=== PATIENT | female | born 1970 | race Caucasian/White ===

== ENCOUNTER 2017-06-19 17:40 | Emergency (ER) | payer SELFPAY ==
[~2017-06-19] VITALS: Ht 167.6 cm; Wt 79.9 kg
[2017-06-19 17:51] VITALS: BP 107/71
[2017-06-19] MEDS ORDERED: METHOCARBAMOL 750 MG TABLET PO ONE (19:00)
[2017-06-19] MEDS ORDERED: KETOROLAC 30 MG/1 ML IM ONE (19:00)
[2017-06-19] MEDS ORDERED: METHOCARBAMOL 750 MG TABLET ONE (19:01)
[2017-06-19] MEDS ORDERED: KETOROLAC 30 MG/1 ML ONE (19:01)
== END 2017-06-19 19:41 ==
LOC: ED 19:35
DX: S52.125A Nondisplaced fracture of head of left radius, initial encounter for closed fracture (principal); G89.11 Acute pain due to trauma; J45.909 Unspecified asthma, uncomplicated; F43.10 Post-traumatic stress disorder, unspecified; W01.0XXA Fall on same level from slipping, tripping and stumbling without subsequent striking against object, initial encounter; Y93.89 Activity, other specified; Y92.89 Other specified places as the place of occurrence of the external cause; Y99.8 Other external cause status
CPT/HCPCS: 29105; 72110

== ENCOUNTER 2017-09-07 23:25 | Emergency (ER) | payer MEDICAID, OTHER ==
[~2017-09-07] VITALS: Ht 167.6 cm; Wt 76.3 kg
[2017-09-07 23:26] VITALS: BP 122/85
[2017-09-08 01:41] LABS: CULTURE INDICATED? YES; MICROSCOPIC INDICATED
[2017-09-08 01:47] LABS: BASOPHILS # (AUTO) 0.01 x10^3/uL (0-0.1); BASOPHILS % (AUTO) 0 % (0-1); EOSINOPHILS # (AUTO) 0.32 x10^3/uL (0-0.4); EOSINOPHILS % (AUTO) 4 % (1-7); LYMPHOCYTES # (AUTO) 1.56 x10^3/uL (1-3.4); LYMPHOCYTES % (AUTO) 18 % (22-44); MD NO; MEAN CORPUSCULAR HEMOGLOBIN 31.1 pg (27.0-34.8); MEAN CORPUSCULAR HGB CONC 33.9 g/dL (32.4-35.8); MEAN CORPUSCULAR VOLUME 91.5 fL (80-100); MEAN PLATELET VOLUME 7.8 fL (7.4-10.4); MONOCYTES # (AUTO) 1.19 x10^3/uL (0.2-0.8); MONOCYTES % (AUTO) 14 % (2-9); NEUTROPHILS # (AUTO) 5.53 x10^3/uL (1.8-6.8); NEUTROPHILS % (AUTO) 64 % (42-75); PLATELET COUNT 186 x10^3/uL (130-400); RED BLOOD COUNT 4.23 x10^6/uL (3.82-5.3); RED CELL DISTRIBUTION WIDTH 14.2 % (9.6-15.2)
[2017-09-08 02:00] LABS: ALBUMIN 2.1 g/dL (3.4-5.0); ANION GAP 8 mmol/L (5-15); CALCIUM 8.6 mg/dL (8.5-10.1); CHLORIDE 110 mmol/L (98-107)
[2017-09-08 02:06] LABS: ALANINE AMINOTRANSFERASE 59 U/L (12-78); ALKALINE PHOSPHATASE 286 U/L (45-117); BILIRUBIN,TOTAL 1.4 mg/dL (0.2-1.0); CREATININE 1.12 mg/dL (0.55-1.02); TOTAL PROTEIN 7.1 g/dL (6.4-8.2); TROPONIN I < 0.015 ng/mL (0.000-0.045)
== END 2017-09-08 03:32 | disposition home or self-care (01) ==
LOC: ED 09-08 00:56
DX: R10.84 Generalized abdominal pain (principal); F43.10 Post-traumatic stress disorder, unspecified
CPT/HCPCS: 36415; 71045; 74176; 80053; 81001; 81025; 83690; 84484; 85025; 87086; 99285

== ENCOUNTER 2017-09-21 18:10 | Emergency (ER) | payer MEDICAID ==
[~2017-09-21] VITALS: Ht 167.6 cm; Wt 74.5 kg
[2017-09-21] MEDS ORDERED: ONDANSETRON 2MG/ML, 2ML IVPush ONE (18:30)
[2017-09-21] MEDS ORDERED: SODIUM CHLORIDE FLUSH 10ML SYR IVF ONE (18:30)
[2017-09-21] MEDS ORDERED: ONDANSETRON ODT 4 MG ONE (18:30)
[2017-09-21] MEDS ORDERED: ONDANSETRON 2MG/ML, 2ML ONE (18:30)
[2017-09-21] MEDS ORDERED: SODIUM CHLORIDE 0.9% 1,000ML IVBOLUS ONE (18:30)
[2017-09-21 18:49] VITALS: BP 133/91
[2017-09-21 18:56] LABS: BASOPHILS # (AUTO) 0.01 x10^3/uL (0-0.1); BASOPHILS % (AUTO) 0 % (0-1); EOSINOPHILS # (AUTO) 0.16 x10^3/uL (0-0.4); EOSINOPHILS % (AUTO) 2 % (1-7); LYMPHOCYTES # (AUTO) 1.42 x10^3/uL (1-3.4); LYMPHOCYTES % (AUTO) 14 % (22-44); MD NO; MEAN CORPUSCULAR HEMOGLOBIN 31.3 pg (27.0-34.8); MEAN CORPUSCULAR HGB CONC 33.3 g/dL (32.4-35.8); MEAN CORPUSCULAR VOLUME 93.9 fL (80-100); MEAN PLATELET VOLUME 8.4 fL (7.4-10.4); MONOCYTES # (AUTO) 0.81 x10^3/uL (0.2-0.8); MONOCYTES % (AUTO) 8 % (2-9); NEUTROPHILS # (AUTO) 7.73 x10^3/uL (1.8-6.8); NEUTROPHILS % (AUTO) 76 % (42-75); PLATELET COUNT 168 x10^3/uL (130-400); RED BLOOD COUNT 4.46 x10^6/uL (3.82-5.3); RED CELL DISTRIBUTION WIDTH 13.9 % (9.6-15.2)
[2017-09-21 19:07] LABS: ALANINE AMINOTRANSFERASE 83 U/L (12-78); ALBUMIN 2.8 g/dL (3.4-5.0); ANION GAP 7 mmol/L (5-15); CALCIUM 8.1 mg/dL (8.5-10.1); CHLORIDE 109 mmol/L (98-107); CREATININE 0.95 mg/dL (0.55-1.02)
[2017-09-21 19:12] LABS: ALKALINE PHOSPHATASE 162 U/L (45-117); BILIRUBIN,TOTAL 1.2 mg/dL (0.2-1.0); TOTAL PROTEIN 7.6 g/dL (6.4-8.2)
[2017-09-21 19:25] LABS: MICROSCOPIC AUTO
[2017-09-21 19:28] LABS: CULTURE INDICATED? YES
== END 2017-09-21 20:15 | disposition home or self-care (01) ==
LOC: ED 18:51
DX: R10.84 Generalized abdominal pain (principal); N30.00 Acute cystitis without hematuria; R94.5 Abnormal results of liver function studies
CPT/HCPCS: 36415; 80053; 81001; 84703; 85025; 87077; 87086; 87186; 99284

== ENCOUNTER 2019-03-13 18:43 | Inpatient (IN) | payer MEDICAID ==
[~2019-03-13] VITALS: Ht 165.1 cm; Wt 66.7 kg
--- NOTE | 2019-03-13 18:45 | NUR ---
PT IN BATHROOM
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
--- NOTE | 2019-03-13 20:13 | NUR ---
PT TO XRAY NOW.
[2019-03-13] MEDS ORDERED: ACETAMINOPHEN 325 MG TABLET ONE (20:14)
[2019-03-13] MEDS ORDERED: ALBUTEROL/IPRATROPIUM 2.5MG/0.5MG, 3 ML ONE (20:17)
--- NOTE | 2019-03-13 20:17 | NUR ---
PT BACK TO ROOM FROM XRAY NOW.
--- NOTE | 2019-03-13 20:23 | NUR ---
PT AMB TO BR AND BACK TO ROOM WITH STEADY GAIT. UA SENT.
--- NOTE | 2019-03-13 20:24 | NUR ---
PT MEDICATED PER EMAR. PT TOLERATED WELL. RT AT BEDSIDE NOW.
[2019-03-13] MEDS ORDERED: ALBUTEROL/IPRATROPIUM 2.5MG/0.5MG, 3 ML NPPB ONE (20:30)
[2019-03-13] MEDS ORDERED: ACETAMINOPHEN 325 MG TABLET PO ONE (20:30)
[2019-03-13] MEDS ORDERED: SODIUM CHLORIDE 0.9% 1,000ML IVBOLUS ONE ×2 (20:30→21:30)
[2019-03-13] MEDS ORDERED: SODIUM CHLORIDE FLUSH 10ML SYR IVF ONE (20:30)
--- NOTE | 2019-03-13 20:39 | NUR ---
NS INFUSING AT THIS TIME.
[2019-03-13 20:57] LABS: CULTURE INDICATED? YES; MICROSCOPIC INDICATED
[2019-03-13 21:05] LABS: BASOPHILS % (AUTO) 0 % (0-1); EOSINOPHILS # (AUTO) 0.01 x10^3/uL (0-0.4); EOSINOPHILS % (AUTO) 0 % (1-7); LYMPHOCYTES % (AUTO) 10 % (22-44); MD NO; MEAN CORPUSCULAR HEMOGLOBIN 32.1 pg (27.0-34.8); MEAN CORPUSCULAR HGB CONC 33.5 g/dL (32.4-35.8); MEAN CORPUSCULAR VOLUME 95.8 fL (80-100); MEAN PLATELET VOLUME 8.4 fL (7.4-10.4); MONOCYTES # (AUTO) 1.41 x10^3/uL (0.2-0.8); MONOCYTES % (AUTO) 10 % (2-9); NEUTROPHILS # (AUTO) 11.95 x10^3/uL (1.8-6.8); NEUTROPHILS % (AUTO) 80 % (42-75); PLATELET COUNT 130 x10^3/uL (130-400); RED BLOOD COUNT 4.75 x10^6/uL (3.82-5.3); RED CELL DISTRIBUTION WIDTH 13.2 % (9.6-15.2)
[2019-03-13 21:14] LABS: ALANINE AMINOTRANSFERASE 145 U/L (12-78); ALBUMIN 3.2 g/dL (3.4-5.0); ANION GAP 8 mmol/L (5-15); CALCIUM 8.8 mg/dL (8.5-10.1); CHLORIDE 106 mmol/L (98-107); CREATININE 0.84 mg/dL (0.55-1.02)
[2019-03-13 21:16] LABS: ALKALINE PHOSPHATASE 102 U/L (45-117); BILIRUBIN,TOTAL 1.5 mg/dL (0.2-1.0); TOTAL PROTEIN 7.4 g/dL (6.4-8.2)
[2019-03-13] MEDS ORDERED: CEFTRIAXONE PMX 1GM/50ML 50 ML ONE (21:16)
--- NOTE | 2019-03-13 21:21 | NUR ---
ABX INFUSING AT THIS TIME. PT TOLERATED WELL.
[2019-03-13] MEDS ORDERED: CEFTRIAXONE PMX 1GM/50ML 50 ML IV ONE (21:30)
[2019-03-13] MEDS ORDERED: SODIUM CHLORIDE 0.9% 1,000 ML IV SCH (21:43)
--- NOTE | 2019-03-13 21:48 | NUR ---
REPORT GIVEN TO JATIN OZUNA. ALL QUESTIONS ANSWERED.
[2019-03-13] MEDS ORDERED: hydrALAzine 20 MG/ML, 1ML IVPush PRN (22:00)
[2019-03-13] MEDS: ENOXAPARIN 40 MG/0.4 ML SQ SCH (22:00)
[2019-03-13 23:03] VITALS: BP 100/65
[2019-03-14 02:00] VITALS: BP 114/77
[2019-03-14 06:59] VITALS: BP 111/73
[2019-03-14] MEDS: ACETAMINOPHEN 325 MG TABLET PO PRN ×3 (08:10→18:27)
[2019-03-14 08:56] LABS: MEAN CORPUSCULAR HEMOGLOBIN 31.5 pg (27.0-34.8); MEAN CORPUSCULAR HGB CONC 33.4 g/dL (32.4-35.8); MEAN CORPUSCULAR VOLUME 94.2 fL (80-100); MEAN PLATELET VOLUME 8.1 fL (7.4-10.4); PLATELET COUNT 116 x10^3/uL (130-400); RED BLOOD COUNT 4.62 x10^6/uL (3.82-5.3); RED CELL DISTRIBUTION WIDTH 13.4 % (9.6-15.2)
[2019-03-14 08:59] LABS: ALANINE AMINOTRANSFERASE 121 U/L (12-78); ALBUMIN 2.9 g/dL (3.4-5.0); ANION GAP 8 mmol/L (5-15); CALCIUM 8.3 mg/dL (8.5-10.1); CHLORIDE 108 mmol/L (98-107); CREATININE 0.77 mg/dL (0.55-1.02)
[2019-03-14 09:01] LABS: ALKALINE PHOSPHATASE 100 U/L (45-117); BILIRUBIN,TOTAL 1.2 mg/dL (0.2-1.0)
[2019-03-14 09:19] LABS: BASOPHILS # (AUTO) 0.01 x10^3/uL (0-0.1); BASOPHILS % (AUTO) 0 % (0-1); EOSINOPHILS # (AUTO) 0.01 x10^3/uL (0-0.4); EOSINOPHILS % (AUTO) 0 % (1-7); LYMPHOCYTES % (AUTO) 8 % (22-44); MD SCAN; MONOCYTES % (AUTO) 12 % (2-9); NEUTROPHILS % (AUTO) 80 % (42-75)
[2019-03-14] MEDS: CEFTRIAXONE PMX 2GM/50ML 50 ML IV SCH (09:50)
[2019-03-14 12:27] VITALS: BP 95/61
[2019-03-14] MEDS: NICOTINE 21 MG/24 HR PATCH.TD24 TD SCH (16:06)
[2019-03-14 19:08] VITALS: BP 109/60
[2019-03-14] MEDS ORDERED: IBUPROFEN 200 MG TABLET PO ONE (19:30)
[2019-03-14] MEDS ORDERED: SODIUM CHLORIDE 0.9% 1,000 ML IV SCH ×2 (21:43)
[2019-03-14] MEDS: ENOXAPARIN 40 MG/0.4 ML SQ SCH (22:00)
[2019-03-15 00:45] VITALS: BP 114/75
[2019-03-15 05:27] LABS: ALBUMIN 2.6 g/dL (3.4-5.0); CALCIUM 8.5 mg/dL (8.5-10.1); CHLORIDE 113 mmol/L (98-107)
[2019-03-15 05:32] LABS: ALANINE AMINOTRANSFERASE 92 U/L (12-78); ALKALINE PHOSPHATASE 102 U/L (45-117); ANION GAP 5 mmol/L (5-15); BILIRUBIN,TOTAL 0.8 mg/dL (0.2-1.0); CREATININE 0.84 mg/dL (0.55-1.02); TOTAL PROTEIN 6.6 g/dL (6.4-8.2)
[2019-03-15 05:37] LABS: BASOPHILS # (AUTO) 0.02 x10^3/uL (0-0.1); BASOPHILS % (AUTO) 0 % (0-1); EOSINOPHILS % (AUTO) 1 % (1-7); LYMPHOCYTES # (AUTO) 0.89 x10^3/uL (1-3.4); LYMPHOCYTES % (AUTO) 9 % (22-44); MD NO; MEAN CORPUSCULAR HEMOGLOBIN 32.5 pg (27.0-34.8); MEAN CORPUSCULAR HGB CONC 33.5 g/dL (32.4-35.8); MEAN PLATELET VOLUME 8.3 fL (7.4-10.4); MONOCYTES # (AUTO) 1.42 x10^3/uL (0.2-0.8); MONOCYTES % (AUTO) 13 % (2-9); NEUTROPHILS # (AUTO) 8.13 x10^3/uL (1.8-6.8); NEUTROPHILS % (AUTO) 77 % (42-75); PLATELET COUNT 107 x10^3/uL (130-400)
[2019-03-15] MEDS: ACETAMINOPHEN 325 MG TABLET PO PRN (06:37)
[2019-03-15 07:14] VITALS: BP 108/76
[2019-03-15] MEDS: IBUPROFEN 200 MG TABLET PO PRN ×2 (07:30→20:24)
[2019-03-15] MEDS: NICOTINE 21 MG/24 HR PATCH.TD24 TD SCH ×2 (07:30→15:31)
[2019-03-15 08:22] LABS: HEMOGLOBIN A1C 5.4 % (4.2-6.3)
[2019-03-15] MEDS: CEFTRIAXONE PMX 2GM/50ML 50 ML IV SCH (10:51)
[2019-03-15 13:37] VITALS: BP 121/85
[2019-03-15 19:20] VITALS: BP 120/82
[2019-03-15] MEDS: ENOXAPARIN 40 MG/0.4 ML SQ SCH (20:25)
[2019-03-15] MEDS ORDERED: ONDANSETRON 2MG/ML, 2ML IVPush PRN (21:00)
[2019-03-16 01:00] VITALS: BP 114/78
[2019-03-16] MEDS: ACETAMINOPHEN 325 MG TABLET PO PRN (03:53)
[2019-03-16 05:35] LABS: ALBUMIN 2.4 g/dL (3.4-5.0); ANION GAP 7 mmol/L (5-15); CALCIUM 8.4 mg/dL (8.5-10.1); CHLORIDE 111 mmol/L (98-107)
[2019-03-16 05:37] LABS: BASOPHILS # (AUTO) 0.02 x10^3/uL (0-0.1); BASOPHILS % (AUTO) 0 % (0-1); EOSINOPHILS # (AUTO) 0.16 x10^3/uL (0-0.4); EOSINOPHILS % (AUTO) 3 % (1-7); LYMPHOCYTES # (AUTO) 0.98 x10^3/uL (1-3.4); LYMPHOCYTES % (AUTO) 17 % (22-44); MD NO; MEAN CORPUSCULAR HEMOGLOBIN 31.5 pg (27.0-34.8); MEAN CORPUSCULAR HGB CONC 32.9 g/dL (32.4-35.8); MEAN CORPUSCULAR VOLUME 95.8 fL (80-100); MEAN PLATELET VOLUME 8.2 fL (7.4-10.4); MONOCYTES # (AUTO) 0.81 x10^3/uL (0.2-0.8); MONOCYTES % (AUTO) 14 % (2-9); NEUTROPHILS # (AUTO) 3.93 x10^3/uL (1.8-6.8); NEUTROPHILS % (AUTO) 67 % (42-75); PLATELET COUNT 117 x10^3/uL (130-400)
[2019-03-16 05:39] LABS: ALANINE AMINOTRANSFERASE 74 U/L (12-78); ALKALINE PHOSPHATASE 95 U/L (45-117); BILIRUBIN,TOTAL 0.9 mg/dL (0.2-1.0); TOTAL PROTEIN 6.6 g/dL (6.4-8.2)
[2019-03-16 06:57] VITALS: BP 117/79
[2019-03-16] MEDS: IBUPROFEN 200 MG TABLET PO PRN (07:52)
[2019-03-16] MEDS ORDERED: SULFAMETH./TRIMETHOPRIM DS 800MG/160MG TABLET PO SCH (09:00)
[2019-03-16] MEDS ORDERED: ACET325T26 PO (10:11)
[2019-03-16] MEDS ORDERED: SULF-169 PO (10:11)
== END 2019-03-16 12:35 | disposition home or self-care (01) | DRG 872 ==
LOC: ED 21:30 → EDIP 21:43 → 3NE 22:24
PROVIDERS: ADMIT Family Medicine; ATTEND Family Medicine
DX: A41.9 Sepsis, unspecified organism (principal); E87.2 Acidosis; N10 Acute pyelonephritis; B96.20 Unspecified Escherichia coli [E. coli] as the cause of diseases classified elsewhere; E86.0 Dehydration; D69.6 Thrombocytopenia, unspecified; F15.10 Other stimulant abuse, uncomplicated; F12.90 Cannabis use, unspecified, uncomplicated; F17.200 Nicotine dependence, unspecified, uncomplicated; F41.1 Generalized anxiety disorder; F43.10 Post-traumatic stress disorder, unspecified; F60.3 Borderline personality disorder; J45.909 Unspecified asthma, uncomplicated; K72.90 Hepatic failure, unspecified without coma; K74.60 Unspecified cirrhosis of liver; R65.20 Severe sepsis without septic shock; Z79.01 Long term (current) use of anticoagulants; Z85.41 Personal history of malignant neoplasm of cervix uteri
CPT/HCPCS: 36415; 71046; 80053; 81001; 83036; 83605; 84145; 84703; 85025; 86592; 87040; 87077; 87086; 87186; 87491; 87591; 87806; 93005; 94640; 96374; G0378; J0696; J2405; G0475; J7030

== ENCOUNTER 2019-09-11 13:08 | Emergency (ER) | payer MEDICAID ==
[~2019-09-11] VITALS: Ht 167.6 cm; Wt 64.4 kg
[~2019-09-11 13:08] MED LIST: ACET325T26 PO; SULF-169 PO
[2019-09-11 13:12] VITALS: BP 111/58
== END 2019-09-11 14:19 | disposition home or self-care (01) ==
LOC: ED 14:13
DX: J06.9 Acute upper respiratory infection, unspecified (principal); J45.909 Unspecified asthma, uncomplicated; F17.200 Nicotine dependence, unspecified, uncomplicated
CPT/HCPCS: 71046; 99283

== ENCOUNTER 2020-03-11 21:11 | Emergency (ER) | payer MEDICAID ==
[~2020-03-11] VITALS: Ht 167.6 cm; Wt 72.0 kg
[2020-03-11 21:20] VITALS: BP 136/97
[2020-03-11] MEDS ORDERED: DIPH,PERTUSS(ACELL),TET VAC/PF 0.5 ML IM-VACC ONE (21:30)
== END 2020-03-11 21:47 | disposition home or self-care (01) ==
LOC: ED 21:42
DX: L01.01 Non-bullous impetigo (principal); H60.11 Cellulitis of right external ear; J45.909 Unspecified asthma, uncomplicated; F17.200 Nicotine dependence, unspecified, uncomplicated
CPT/HCPCS: 99283

== ENCOUNTER 2020-04-28 12:04 | Emergency (ER) | payer MEDICAID ==
[~2020-04-28] VITALS: Ht 167.6 cm; Wt 74.3 kg
[2020-04-28 12:07] VITALS: BP 131/91
[2020-04-28] MEDS ORDERED: KETOROLAC 30 MG/1 ML ONE (12:53)
[2020-04-28] MEDS ORDERED: CYCLOBENZAPRINE 10 MG TABLET ONE (12:53)
[2020-04-28] MEDS ORDERED: KETOROLAC 30 MG/1 ML IM ONE (13:00)
[2020-04-28] MEDS ORDERED: CYCLOBENZAPRINE 10 MG TABLET PO ONE (13:00)
--- NOTE | 2020-04-28 13:40 | NUR ---
pt reports pain is beter after toradol. pt given crackers and peanut butter. waiting for dc instructions.
== END 2020-04-28 14:22 | disposition home or self-care (01) ==
LOC: ED 13:12
DX: M54.12 Radiculopathy, cervical region (principal); M54.2 Cervicalgia; J45.909 Unspecified asthma, uncomplicated; F17.210 Nicotine dependence, cigarettes, uncomplicated
CPT/HCPCS: 72125; 96372; 99284; J1885

== ENCOUNTER 2020-05-20 10:50 | Emergency (ER) | payer MEDICAID ==
[~2020-05-20] VITALS: Ht 167.6 cm; Wt 73.8 kg
[2020-05-20 11:24] VITALS: BP 99/68
--- NOTE | 2020-05-20 12:33 | NUR ---
[employer] APPRENTICE: CALLED FOR ROOM, NO ANSWER
--- NOTE | 2020-05-20 12:42 | NUR ---
SANITARY PLUMBER: CALLED FOR ROOM, NO ANSWER
--- NOTE | 2020-05-20 12:51 | NUR ---
[employer] ARCHITECT: PT CALLED FOR ROOM, NO ANSWER
== END 2020-05-20 12:57 | disposition left against medical advice (07) ==
LOC: ED 12:04
DX: K08.89 Other specified disorders of teeth and supporting structures (principal); R60.9 Edema, unspecified
CPT/HCPCS: 99281

== ENCOUNTER 2020-05-22 13:37 | Emergency (ER) | payer MEDICAID ==
[~2020-05-22] VITALS: Ht 165.1 cm; Wt 72.3 kg
[2020-05-22 13:57] VITALS: BP 130/88
[2020-05-22] MEDS ORDERED: IBUPROFEN 600 MG TABLET PO ONE (14:30)
[2020-05-22] MEDS ORDERED: LIDOCAINE 1%-EPI 1:100K, 20ML SQ ONE (14:30)
[2020-05-22] MEDS ORDERED: IBUPROFEN 600 MG TABLET ONE (14:37)
== END 2020-05-22 14:45 | disposition home or self-care (01) ==
LOC: ED 14:24
DX: K04.7 Periapical abscess without sinus (principal); R51 Headache; J45.909 Unspecified asthma, uncomplicated; Z85.9 Personal history of malignant neoplasm, unspecified
CPT/HCPCS: 99283